=== PATIENT | female | born 1990 | race Asian ===

== ENCOUNTER → 2017-07-28 | Outpatient (CLI) | payer BC | END | disposition home or self-care (01) | LOC: C.PAPS 12:31 | PROVIDERS: ATTEND Physician Assistant | DX: Z01.419 Encounter for gynecological examination (general) (routine) without abnormal findings (principal) ==

== ENCOUNTER → 2017-08-12 | Outpatient (CLI) | payer BC | END | disposition home or self-care (01) | LOC: C.LAB1850 12:16 | PROVIDERS: ATTEND Physician Assistant | DX: N91.2 Amenorrhea, unspecified (principal) ==

== ENCOUNTER → 2017-08-25 | Outpatient (CLI) | payer BC ==
[2017-08-25 16:46] LABS: PREG INTERNAL NEGATIVE QC NEG CLEAR BACKGROUND; PREG INTERNAL POSITIVE QC POS CONTROL LINE
== END | disposition home or self-care (01) ==
LOC: C.LAB1850 14:55
DX: Z30.9 Encounter for contraceptive management, unspecified (principal)